=== PATIENT | female | born 1955 | race Caucasian/White ===

== ENCOUNTER 2016-11-28 09:16 | Day surgery (SDC) | payer OTHER ==
[2016-11-28 09:57] VITALS: BMI 19.2
[2016-11-28 10:26] VITALS: TEMP 97.8
[2016-11-28 11:34] VITALS: BP 136/78; PULSE 63
--- NOTE | 2016-11-29 11:38 | PATH ---
Surgical Pathology Report Patient Name: KYA LOZANO [facility]. Rec. #: [id number] /Age/Gender: 1955 (Age: 61) / F Account: [id number] Location: U-ENDOSCOPY Taken: 11/28/2016 Received: 11/28/2016 Reported: 11/29/2016 Physicians: Kalyan Lechuga D.O. Specimen(s) Received A: BX ANTRAL EROSIONS B: BX ANGULARIS/BODY C: BX DISTAL & MID ESOPHAGUS Clinical History Abdominal pain, chest pain Gastritis Final Diagnosis A. STOMACH, ANTRUM, BIOPSY: MODERATE CHRONIC ACTIVE GASTRITIS. IMMUNOSTAIN FOR H. PYLORI IS POSITIVE (MANY ORGANISMS). B. STOMACH, ANGULARIS AND BODY, BIOPSY: MILD TO MODERATE CHRONIC GASTRITIS. IMMUNOSTAIN FOR H. PYLORI IS POSITIVE (MANY ORGANISMS). C. ESOPHAGUS, DISTAL AND MID, BIOPSY: SQUAMOUS EPITHELIUM WITH PAPILLOMATOSIS SUGGESTIVE OF REFLUX ESOPHAGITIS. NO INTESTINAL METAPLASIA IDENTIFIED (NO CARTER'S IDENTIFIED). NO EOSINOPHILIC ESOPHAGITIS IDENTIFIED. Electronically Signed Alejandro Toledo M.D. Gross Description A. Received in formalin, labeled "biopsy antral erosion" is a wolfe, irregular portion of soft tissue measuring 0.3 cm. in greatest dimension. The specimen is submitted in toto in one cassette. B. Received in formalin, labeled "biopsy angularis/body" are 2 wolfe, irregular portions of soft tissue measuring 0.2 and 0.3 cm. in greatest dimension. The specimens are submitted in toto in one cassette. C. Received in formalin, labeled "biopsy distal/mid esophagus" are 3 wolfe, irregular portions of soft tissue ranging from 0.2-0.3 cm. in greatest dimension. The specimens are submitted in toto in one cassette. DL11/28/2016 saudi11/28/2016
== END 2016-11-28 11:25 | disposition home or self-care (01) ==
LOC: JASU-ENDO 09:16
PROVIDERS: ATTEND Internal Medicine Gastroenterology
PROC: 0DB68ZX Excision of Stomach, Via Natural or Artificial Opening Endoscopic, Diagnostic (ICD-10-PCS; principal; 2016-11-28 10:30)
DX: K25.9 Gastric ulcer, unspecified as acute or chronic, without hemorrhage or perforation (principal)
CPT/HCPCS: 88305-TC; 88342-TC

== ENCOUNTER 2016-12-26 09:46 | Day surgery (SDC) | payer OTHER ==
[2016-12-26 10:31] VITALS: BMI 20.5
[2016-12-26] MEDS ORDERED: LIDOCAINE HCL/PF 2% SDV 5ML VIAL ONE (10:53)
[2016-12-26] MEDS ORDERED: PROPOFOL 20 ML ONE ×5 (10:53)
[2016-12-26 11:33] VITALS: TEMP 97.6
[2016-12-26 12:18] VITALS: BP 129/69; PULSE 68
== END 2016-12-26 12:18 | disposition home or self-care (01) ==
LOC: JASU-ENDO 09:46
PROVIDERS: ATTEND Internal Medicine Gastroenterology
PROC: 0DJD8ZZ Inspection of Lower Intestinal Tract, Via Natural or Artificial Opening Endoscopic (ICD-10-PCS; principal; 2016-12-26 09:30)
DX: Z12.11 Encounter for screening for malignant neoplasm of colon (principal); K57.30 Diverticulosis of large intestine without perforation or abscess without bleeding; K64.8 Other hemorrhoids